=== PATIENT | female | born 1965 | race Caucasian/White ===

== ENCOUNTER 2016-12-17 13:36 | Emergency (ER) | payer SELFPAY ==
[~2016-12-17 13:36] MED LIST: ASPIR-LOW81 MG PO; CELEXA20 MG PO; KLONOPIN TAB 00.5 MG PO; MOBIC7.5 MG PO; NORCO 7.5-3251 EACH PO
== END 2016-12-17 16:22 | disposition home or self-care (01) ==
LOC: ER1 13:36
DX: M25.552 Pain in left hip (principal); I25.2 Old myocardial infarction; I10 Essential (primary) hypertension; Z86.73 Personal history of transient ischemic attack (TIA), and cerebral infarction without residual deficits; Z88.0 Allergy status to penicillin; Z88.5 Allergy status to narcotic agent; Z88.6 Allergy status to analgesic agent; Z88.8 Allergy status to other drugs, medicaments and biological substances
CPT/HCPCS: 73502; 99283

== ENCOUNTER → 2021-11-05 | Outpatient (CLI) | payer OTHER | LOC: CT 10-01 14:30 | DX: K43.9 Ventral hernia without obstruction or gangrene (principal); R10.13 Epigastric pain; I10 Essential (primary) hypertension | CPT/HCPCS: 36415; 74160; 82565; 84520; Q9967 ==

== ENCOUNTER 2022-01-03 10:25 | Emergency (ER) | payer OTHER ==
[2022-01-03 11:26] LABS: HEMOGLOBIN 12.3 gm/dl (12.3-15.3); RED BLOOD COUNT 3.9 M/UL (4.00-5.10); WHITE BLOOD COUNT 7.7 K/UL (4.5-11.0)
[2022-01-03 11:51] LABS: BUN/CREATININE RATIO 18 (0-10)
[2022-01-03] MEDS ORDERED: ZOFRAN ODT 4 MG4 MG PO (17:49)
[2022-01-03] MEDS ORDERED: OMNICEF 300 MG300 MG PO (17:49)
== END 2022-01-03 19:00 | disposition home or self-care (01) ==
LOC: ER1 10:25
PROVIDERS: Family Medicine
DX: J16.8 Pneumonia due to other specified infectious organisms (principal); M79.671 Pain in right foot; F41.9 Anxiety disorder, unspecified; F13.20 Sedative, hypnotic or anxiolytic dependence, uncomplicated; G89.29 Other chronic pain; R74.01 Elevation of levels of liver transaminase levels; I95.9 Hypotension, unspecified; I25.2 Old myocardial infarction; I10 Essential (primary) hypertension; Z88.0 Allergy status to penicillin; Z51.81 Encounter for therapeutic drug level monitoring
CPT/HCPCS: 36600; 71045; 73630; 80053; 82550; 82553; 82805; 83605; 84484; 85025; 85610; 93005; 96374; 99285; J0696; J7030